=== PATIENT | female | born 1940 | race Caucasian/White ===

== ENCOUNTER → 2020-09-09 13:52 | Outpatient (CLI) | payer MEDICARE, OTHER, SELFPAY ==
--- NOTE | 2020-09-09 | DI.MRI.S_ITS ---
PROCEDURE: MR SHOULDER RT WO/W CON INDICATIONS: Idiopathic aseptic necrosis of unspecified humerus TECHNIQUE: Noncontrast oblique coronal T1 spin echo and T2 fast spin echo with fat saturation, oblique sagittal T1 spin echo and T2 fast spin echo with fat saturation, axial T1 spin echo and T2 fast spin echo with fat saturation through the shoulder. Post-contrast oblique coronal, oblique sagittal, and axial T1 spin echo with fat saturation through the shoulder. COMPARISON: None. FINDINGS: Image quality: Excellent. Rotator cuff: There is bursal sided fraying or low-grade partial tearing of the supraspinatus tendon at the anterior to mid footprint superimposed on moderate supraspinatus and infraspinatus tendinosis. The teres minor and subscapularis tendons are intact. There is no significant rotator cuff muscle atrophy. 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 No significant surrounding edema is seen. There is minimal enhancement at the margins of the lesion. There is degenerative spurring in the glenoid rim. Moderate degenerative changes are seen in the acromioclavicular joint. There is no significant joint effusion. Trace subacromial/subdeltoid bursal fluid is present. Capsule and soft tissues: No suspicious soft tissue enhancement. No displaced labral tear is seen. The biceps long head tendon demonstrates moderate intra-articular tendinosis. There is partial effacement of the fat in the rotator interval. The inferior glenohumeral ligament is intact. IMPRESSION: 1. 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 No associated osseous edema is seen. 2. Bursal sided fraying or low-grade partial tearing of the supraspinatus tendon at the anterior to mid footprint. Moderate supraspinatus and infraspinatus tendinosis. 3. Moderate biceps long head tendinosis. 4. Moderate acromioclavicular joint osteoarthrosis. Dictated by: Eliot Randall M.D. on 09/09/2020 at 15:47 Approved by: Eliot Randall M.D. on 09/09/2020 at 16:04
== END ==
PROVIDERS: Family Provider Family Medicine; PCP Physician Assistant Medical; Referring Provider Physician Assistant Medical; Visit Provider Physician Assistant Medical
DX: M87.021 Idiopathic aseptic necrosis of right humerus (principal); R91.8 Other nonspecific abnormal finding of lung field; M75.111 Incomplete rotator cuff tear or rupture of right shoulder, not specified as traumatic; M19.011 Primary osteoarthritis, right shoulder
CPT/HCPCS: 73223; A9579

== ENCOUNTER → 2023-03-15 09:44 | Outpatient (CLI) | payer OTHER, SELFPAY ==
--- NOTE | 2023-03-15 | DI.RAD.S_ITS ---
PROCEDURE: FL BARIUM SWALLOW W SPEECH INDICATIONS: DYSPHAGIA/THROAT PAIN/HOARSENESS COMPARISON: None. TECHNIQUE: Examination was conducted in conjunction with speech pathology per standard protocol. In the lateral projection, filming was performed of the patient swallowing. AP projection filming may also be performed with patient swallowing. COMPARISON: FINDINGS: Function: The oral preparatory phase appears oval, with proper containment. The subsequent oral propulsive phase, pharyngeal phase, and esophageal phase of swallowing also appear unremarkable with all proffered substances. No laryngotracheal penetration or aspiration. No pathologic vallecular pooling. Morphology: No cricopharyngeal bar is identified. No cervical esophageal webs. No Zenker's diverticulum. There is moderate dilatation with air-fluid levels and delayed transit of ingested oral contrast material within the visualized esophagus with abrupt tapering at the gastroesophageal junction. No evidence for intraluminal filling defects or extra luminal mass effect. A standard barium tablet did not pass beyond the gastroesophageal junction during the duration of the examination. There appears to be occasional tertiary contractions. Of note, review of recent EGD demonstrated no focal abnormalities or fixed narrowing/strictures at the GE junction. IMPRESSION: Findings consistent with achalasia. There was an unremarkable comparison EGD performed recently. Recommend further evaluation with gastroenterology consultation. Additionally, please see separate speech pathology report for further details. Dictated by: Mikel Hughes M.D. on 03/19/2023 at 17:02 Approved by: Mikel Hughes M.D. on 03/19/2023 at 17:07
--- NOTE | 2023-03-15 13:26 | ST.SWALLOW ---
Visit Care Team Role Provider Type Natalia Traore PA-C Primary Care Provider Non-Staff Specialty: Medical Address: [address] [place] [address] [address], [place], [address] Email: Sivan Dukes MD Family Provider Non-Staff Specialty: Family Practice Address: [address] [place], [place] [address]ot [facility], [place], [address] Email: Karson Davila MD Attending Provider Physician Referring Provider Specialty: Ear, Nose, Throat Address: [address] [place] [address] [place], [address] Email: [email or web address] Modified Barium Swallow Study SHIP'S PILOT Modified Barium Swallow Study Start: 03/15/23 10:50 Freq: Status: Active Protocol: Document 03/15/23 10:51 LNK (Rec: 03/15/23 11:13 LNK [id number]) Modified Barium Swallow Study Total Time Visit Start Time 10:00 Visit Stop Time 10:45 Total Visit Minutes [address] Karson Davila, ENT Reason for Referral dysphagia Setting Setting Outpatient Care Patient Information Identification Type Name,Date of Patient History Pt was seen for a Modified Barium Swallow Study (MBSS) at the referral of Dr. Davila. According to the pt, since September , she has been experiencing difficulty with eating, especially solids. Pt reported that she has been unable to swallow anything and has lost weight. Her reported frequent undigested emisis occurring. On 02/12/23, the pt had an EGD at [facility]. The results of the EGD were brought in by the pt's . The EGD results indicated a normal esophagus. Biopsies were taken at the time of the EGD. Pt saw Dr. Davila who, according to the pt and her , noted that the structures observed were WNL. Dr. Davila referred the pt for an MBSS. Subjective Observations Pt was observed to be anxious regarding the MBSS and appeared to be SOB. Pt cleared her throat frequently and her voice was hoarse. According to the pt she has not been diagnosed with GERD. She was thought to have had TIAs, but that was determined to be migraine headaches, per pt report. Pt is followed by a neurologist for treatment of her migraine headaches. Pt was seated in the fluoroscopy chair with directions and procedures described for her. She indicated she understood and agreed to proceed. Patient Positioning Position View Lat-A/P Imaging Lateral View Textures Administered Trials Presented Thin Liquid via Spoon (IDDSI 0 ),Thin Liquid via Cup (IDDSI 0 ),Extremely Thick Liquid via Spoon (IDDSI 4),Regular (IDDSI 7) Barium Tablet Yes The IDDSI Framework Protocol: IDDSI.1 Oral Impairment Source: The Modified Barium Swallow Impairment Profile (MBSImP??) Lip Closure No labial escape Tongue Control During Bolus Hold Posterior escape of less than half of bolus Bolus Preparation/Mastication Timely & efficient chewing & mashing Bolus Transport/Lingual Motion Brisk tongue motion Oral Residue Complete oral clearance,Trace residue lining oral structures Location Tongue Initiation of Pharyngeal Swallow Bolus head at pyriforms Additional Oral Impairment Observations OME and DKS were observed to be WNL. Dentition was natural in good hygiene. Pt's mastication was good with a rotary chew pattern observed. Good bolus control, formation and AP transition were noted. Pharyngeal Impairment Source: The Modified Barium Swallow Impairment Profile (MBSImP??) Soft Palate Elevation No bolus between soft palate & pharyngeal wall Laryngeal Elevation Part.sup.move.thyroid cart/ part.approx.arytenoids to epiglot.petiole Anterior Hyoid Excursion Partial anterior movement Epiglottic Movement Partial inversion Laryngeal Vestibular Closure Complete; no air/contrast in laryngeal vestibule Pharyngeal Stripping Wave Present - diminished Pharyngoesophageal Segment Opening Complete distention & complete duration; no obstruction of flow Tongue Base Retraction Narrow column of contrast/air betwn tongue base & post. pharyngeal wall Pharyngeal Residue Collection of residue within/ on pharyngeal structures Location Diffuse (>3 areas) Additional Pharyngeal Impairment Mildly weak tongue base Observations strength negatively impacted hyolaryngeal elevation and epiglottic inversion. The epiglottis inverted no further than a horizontal position. The the laryngeal vestibule was adequately sealed with no penetration or aspiration of contrast noted. All trials cleared the pharynx with trace residual observed. A/P View Textures Administered Trials Presented Thin Liquid via Spoon (IDDSI 0 ) The IDDSI Framework Protocol: IDDSI.1 A/P View Observations Esophageal Clearance Upright Position Esophageal retention w/ retrograde flow thru pharyngoesoph segment Esophageal Function Slowed Clearing,Poor Motility, Narrowing Additional A-P Observations The pt swallowed thin barium via cup sip and a standard barium tablet. Esophageal retention of the contrast across trials presented in the lateral position was observed prior to the AP trials. In the AP position, atelectasis/ esophageal dysmotility was noted. Very slow movement of the contrast to the stomach was observed. The esophagus was narrowed proximal to the GE junction restricting flow to the stomach. The barium tablet was noted to be stuck in the upper portion of the narrowed section and remained there for several minutes without passing. During the time the barium tablet was stuck, the pt became distressed and reported significant discomfort. Clinical Impressions Dysphagia Type Esophageal Findings The pt presented with oral and pharyngeal phases of swallowing to be WFL. The observations noted above on the oral and pharyngeal phase descriptions are typically seen in an older patient. The esophageal phase of the pt's swallowing is characterized by esophageal dysmotility, very slow clearance and narrowing of the lower esophagus, restricting flow to the stomach. When the barium tablet became stuck at the top of the narrowed esophagus, the pt demonstrated significant distress. The tablet remained at this position for several minutes when the MBSS ended. Referral to GI is recommended. These results were discussed with the pt and her , who indicated they understood. Patient Appropriate for Therapy No Recommendations Diet Diet Order Liquidised (IDDSI 3) Comments Pt is currently on a liquid/ drinkable puree diet. Recommend she continue Aspiration Precautions Recommended Precautions Upright at 90 Degrees,Frequent Rest Periods,Small Bites/Sips Treatment Plan Recommended Referrals GI Consult
== END ==
PROVIDERS: Family Provider Family Medicine; PCP Physician Assistant Medical; Referring Provider Otolaryngology; Visit Provider Otolaryngology
DX: R13.14 Dysphagia, pharyngoesophageal phase (principal); R07.0 Pain in throat; R49.0 Dysphonia
CPT/HCPCS: 74230; 92611